=== PATIENT | female | born 1995 | race Caucasian/White ===

== ENCOUNTER → 2019-04-22 13:20 | Observation (INO) ==
[2019-04-22 12:31] LABS: Amphetamine Screen,Urine Negative ng/mL (Cutoff=1000); Barbiturate Screen,Urine Negative ng/mL (Cutoff=200); Benzodiazepines Screen,Urine Negative ng/mL (Cutoff=200); Cannabinoid Screen,Urine Negative ng/mL (Cutoff = 50); Cocaine Screen,Urine Negative ng/mL (Cutoff= 300); Opiate Screen,Urine Negative ng/mL (Cutoff=300); Phencyclidine Screen,Urine Negative ng/mL (Cutoff=25)
== END | disposition home or self-care (01) ==
LOC: 1NENULAB
PROVIDERS: ADMIT Obstetrics & Gynecology; ATTEND Obstetrics & Gynecology

== ENCOUNTER 2019-04-22 18:30 | Inpatient (IN) ==
[2019-04-22 18:22] LABS: Basophils # 0.1 K/mcL (0.0-0.2); Basophils % 0.4 %; Eosinophils # 0.1 K/mcL (0.0-0.6); Eosinophils % 0.8 %; Hematocrit 33.5 % (35.3-44.9); Hemoglobin 11.1 g/dL (11.5-15.4); Immature Granulocytes % 0.6 % (0-4); Lymphocytes # 2.3 K/mcL (0.6-4.6); Lymphocytes % 17.3 %; Mean Corpuscular HGB Conc 33.1 g/dL (31.6-35.5); Mean Corpuscular Hemoglobin 26.9 pg (28.0-33.3); Mean Corpuscular Volume 81.1 fL (83.0-100.0); Mean Platelet Volume 12.1 fL (9.4-12.4); Monocytes # 0.9 K/mcL (0.0-1.3); Monocytes % 6.5 %; Neutrophils # 10.1 K/mcL (1.6-8.9); Platelet Count 173 K/mcL (140-400); Red Blood Count 4.13 M/mcL (3.82-4.97); Segmented Neutrophils % 74.4 %; White Blood Count 13.6 K/mcL (4.3-11.1)
[2019-04-22 18:30] LABS: Amphetamine Screen,Urine Negative ng/mL (Cutoff=1000); Barbiturate Screen,Urine Negative ng/mL (Cutoff=200); Benzodiazepines Screen,Urine Negative ng/mL (Cutoff=200); Cannabinoid Screen,Urine Negative ng/mL (Cutoff = 50); Cocaine Screen,Urine Negative ng/mL (Cutoff= 300); Creatinine,Urine 58 mg/dL; Opiate Screen,Urine Negative ng/mL (Cutoff=300); Phencyclidine Screen,Urine Negative ng/mL (Cutoff=25); Protein/Creatinine Ratio,Urine 0.72 mg/mg (0.00-0.20)
[2019-04-22] MEDS ORDERED: Lidocaine 1% 20 ML MDV INFILT PRN (18:46)
[2019-04-22] MEDS ORDERED: Famotidine 20 MG/2 ML VIAL IVP PRN (18:46)
[2019-04-22] MEDS ORDERED: Naloxone 0.4 MG/ML INJ IVP PRN (18:46)
[2019-04-22] MEDS ORDERED: Ondansetron 4 MG/2 ML VIAL IVP PRN (18:46)
[2019-04-22] MEDS ORDERED: Metoclopramide 10 MG/2 ML VIAL IVP PRN (18:46)
[2019-04-22 18:50] LABS: Alanine Aminotransferase 25 Units/L (7-52); Aspartate Amino Transferase 38 Units/L (13-39); BUN/Creatinine Ratio 10 (6-26); Blood Urea Nitrogen 6 mg/dL (6-20); Lactate Dehydrogenase 175 Units/L (140-271); eGFR For African Americans > 60 (> 60); eGFR For Non-African Americans > 60 (> 60)
[2019-04-22] MEDS ORDERED: Ringers Solution, Lactated 1,000 ML IVC SCH (19:00)
[2019-04-22 19:35] LABS: Uric Acid 6.8 mg/dL (2.3-7.6)
[2019-04-22] MEDS ORDERED: Oxytocin 20 units/ LR 1000 mL 20 UNIT/1,000 ML BAG IVC SCH (19:45)
[2019-04-23] MEDS: *HR* Nalbuphine 10 MG/ML AMPUL IVP PRN ×2 (01:00→05:17)
[2019-04-23] MEDS: Epidural Premix (fent/bupiv) 110 ML EP SCH ×2 (09:49→15:21)
[2019-04-23] MEDS ORDERED: *HR* FentaNYL (PF) 100 MCG/2 ML VIAL ONE (15:52)
[2019-04-23] MEDS ORDERED: Acetaminophen 325 MG TABLET PO ONE (17:56)
[2019-04-23] MEDS ORDERED: Acetaminophen 325 MG TABLET PO PRN (23:12)
[2019-04-23] MEDS ORDERED: Lanolin 7 G OINT...G. TP PRN (23:12)
[2019-04-23] MEDS ORDERED: Measles/Mumps/Rubella Vacc 0.5 ML VIAL SQ PRN (23:12)
[2019-04-23] MEDS ORDERED: Oxytocin 20 units/ LR 1000 mL 20 UNIT/1,000 ML BAG IVC SCH (23:12)
[2019-04-23] MEDS ORDERED: *HR* HYDROcodone/Acet 5/325 mg TABLET PO PRN (23:12)
[2019-04-23] MEDS ORDERED: Ibuprofen 600 MG TABLET PO PRN (23:12)
[2019-04-23] MEDS ORDERED: Benzocaine/Menthol 56 GM AEROSOL SPRAY TP PRN (23:12)
[2019-04-24 06:45] LABS: Basophils % 0.2 %; Eosinophils # 0.1 K/mcL (0.0-0.6); Eosinophils % 0.7 %; Hematocrit 28.6 % (35.3-44.9); Hemoglobin 9.9 g/dL (11.5-15.4); Immature Granulocytes % 0.5 % (0-4); Lymphocytes # 2.5 K/mcL (0.6-4.6); Lymphocytes % 14.2 %; Mean Corpuscular HGB Conc 34.6 g/dL (31.6-35.5); Mean Corpuscular Hemoglobin 27.3 pg (28.0-33.3); Mean Corpuscular Volume 78.8 fL (83.0-100.0); Mean Platelet Volume 12.6 fL (9.4-12.4); Monocytes % 5.8 %; Neutrophils # 13.8 K/mcL (1.6-8.9); Platelet Count 156 K/mcL (140-400); Red Blood Count 3.63 M/mcL (3.82-4.97); Red Cell Distribution Width 14.3 % (11.5-14.5); Segmented Neutrophils % 78.6 %; White Blood Count 17.6 K/mcL (4.3-11.1)
[2019-04-24 07:06] LABS: Alanine Aminotransferase 21 Units/L (7-52); Aspartate Amino Transferase 36 Units/L (13-39); BUN/Creatinine Ratio 12 (6-26); Blood Urea Nitrogen 10 mg/dL (6-20); Lactate Dehydrogenase 231 Units/L (140-271); Uric Acid 8.6 mg/dL (2.3-7.6); eGFR For African Americans > 60 (> 60); eGFR For Non-African Americans > 60 (> 60)
[2019-04-24] MEDS ORDERED: Prenatal Vit/FA 1 EACH TABLET PO SCH (09:00)
[2019-04-24 15:51] VITALS: BP 142/98
== END 2019-04-24 18:51 | disposition home or self-care (01) | DRG 768 ==
LOC: 1NENULAB → 1NENUOBS 04-23 23:11
PROVIDERS: ADMIT Advanced Practice Midwife; ATTEND Advanced Practice Midwife

== ENCOUNTER 2020-08-02 01:32 | Inpatient (IN) ==
[2020-08-02] MEDS ORDERED: Lidocaine 1% 20 ML MDV ID PRN (01:53)
[2020-08-02] MEDS ORDERED: Ondansetron 4 MG/2 ML VIAL IVP PRN ×2 (01:53→03:24)
[2020-08-02] MEDS ORDERED: Metoclopramide 10 MG/2 ML VIAL IVP PRN (01:53)
[2020-08-02] MEDS ORDERED: Famotidine 20 MG/2 ML VIAL IVP PRN (01:53)
[2020-08-02] MEDS ORDERED: Azithromycin 500 MG in 0.9 % Sodium Chloride 250 ML IVPB ONE (01:53)
[2020-08-02] MEDS ORDERED: *HR* Nalbuphine 10 MG/ML AMPUL IV PRN (01:53)
[2020-08-02] MEDS ORDERED: Naloxone 0.4 MG/ML INJ IVP PRN ×2 (01:53→03:24)
[2020-08-02] MEDS ORDERED: Ringers Solution, Lactated 1,000 ML IVC SCH (02:00)
[2020-08-02] MEDS ORDERED: Ringers Solution, Lactated 1,000 ML ONE (02:02)
[2020-08-02 02:26] LABS: Basophils # 0.1 K/mcL (0.0-0.2); Basophils % 0.3 %; Eosinophils # 0.1 K/mcL (0.0-0.6); Eosinophils % 0.4 %; Hemoglobin 11.1 g/dL (11.5-15.4); Immature Granulocytes % 0.4 % (0-4); Lymphocytes % 20.5 %; Mean Corpuscular HGB Conc 31.7 g/dL (31.6-35.5); Mean Corpuscular Hemoglobin 24.9 pg (28.0-33.3); Mean Corpuscular Volume 78.7 fL (83.0-100.0); Mean Platelet Volume 12.8 fL (9.4-12.4); Monocytes # 0.7 K/mcL (0.0-1.3); Neutrophils # 10.6 K/mcL (1.6-8.9); Platelet Count 193 K/mcL (140-400); Red Blood Count 4.45 M/mcL (3.82-4.97); Red Cell Distribution Width 14.7 % (11.5-14.5); Segmented Neutrophils % 73.4 %; White Blood Count 14.5 K/mcL (4.3-11.1)
[2020-08-02 02:37] LABS: Amphetamine Screen,Urine Negative ng/mL (Cutoff=1000); Barbiturate Screen,Urine Negative ng/mL (Cutoff=200); Benzodiazepines Screen,Urine Negative ng/mL (Cutoff=200); Cannabinoid Screen,Urine Negative ng/mL (Cutoff = 50); Cocaine Screen,Urine Negative ng/mL (Cutoff= 300); Opiate Screen,Urine Negative ng/mL (Cutoff=300); Phencyclidine Screen,Urine Negative ng/mL (Cutoff=25)
[2020-08-02] MEDS ORDERED: Oxytocin 20 units/ LR 1000 mL 20 UNIT/1,000 ML BAG IVC ONE ×3 (02:52→08:45)
[2020-08-02] MEDS ORDERED: Epidural Premix (fent/bupiv) 110 ML EP ONE (02:55)
[2020-08-02] MEDS ORDERED: Ropivacaine/PF 0.2% 20 ML VIAL ONE (02:56)
[2020-08-02] MEDS ORDERED: EPHEDrine 50 MG/ML VIAL IVP PRN (03:24)
[2020-08-02] MEDS ORDERED: Ropivacaine/PF 0.2% 20 ML VIAL EP ONE (03:24)
[2020-08-02] MEDS ORDERED: Epidural Premix (fent/bupiv) 110 ML EP SCH (03:30)
[2020-08-02] MEDS ORDERED: Lanolin 7 G OINT...G. TP PRN (08:45)
[2020-08-02] MEDS ORDERED: Oxytocin 20 units/ LR 1000 mL 20 UNIT/1,000 ML BAG IVC SCH (08:45)
[2020-08-02] MEDS ORDERED: Acetaminophen 325 MG TABLET PO PRN (08:45)
[2020-08-02] MEDS: Prenatal Vit/FA 1 EACH TABLET PO SCH (09:19)
[2020-08-02] MEDS: Ibuprofen 600 MG TABLET PO PRN (10:24)
[2020-08-03 07:53] VITALS: BP 127/89
[2020-08-03] MEDS: Ibuprofen 600 MG TABLET PO PRN (08:21)
[2020-08-03] MEDS: Prenatal Vit/FA 1 EACH TABLET PO SCH (08:21)
== END 2020-08-03 11:15 | disposition home or self-care (01) | DRG 807 ==
LOC: 1NENULAB → 1NENUOBS 08:41
PROVIDERS: ADMIT Advanced Practice Midwife; ATTEND Advanced Practice Midwife